=== PATIENT | male | born 1950 | race Caucasian/White ===

== ENCOUNTER 2017-11-20 12:53 | Outpatient (CLI) | payer OTHER ==
[~2017-11-20 12:53] MED LIST: GABAPENTIN800 MG PO; MEPRAZOLE PO; NEVANAC3 ML OP; PERCOCET 10-321 EACH PO; TENORMIN25 MG PO
== END 2017-11-20 12:54 | disposition home or self-care (01) ==
LOC: NUCLEAR 12:53
DX: I50.32 Chronic diastolic (congestive) heart failure (principal); I11.9 Hypertensive heart disease without heart failure

== ENCOUNTER 2017-11-26 05:40 | Day surgery (SDC) | payer OTHER | END 2017-11-26 16:40 | disposition home or self-care (01) | LOC: CIR.AMB 05:40 | DX: M93.1 Kienbock's disease of adults (principal) ==